=== PATIENT | female | born 1940 | race Caucasian/White ===

== ENCOUNTER 2016-10-04 19:15 | Inpatient (IN) ==
[2016-10-04] MEDS ORDERED: HYDROmorphone 2 MG/ML SYRINGE IV PRN ×2 (19:16→23:04)
[2016-10-04] MEDS ORDERED: 0.9 % SODIUM CHLORIDE 1,000 ML IV ONE (19:24)
--- NOTE | 2016-10-04 19:38 | Emergency Department Note ---
Fall HPI - General Chief Complaint: Fall Stated Complaint: fall Time Seen by Provider: 10/04/16 19:30 Source: patient Mode of arrival: ambulatory - History of Present Illness HPI Narrative: 76-year-old female with history of HTN, metastatic melanoma, and osteoporosis currently managed on bisphosphonate therapy presenting after sustaining a mechanical fall walking out of her mailbox after having a few glasses of wine tonight. She fell onto her left hip, felt instant popping sensation. She arrived via AMS. Pain upon arrival rated 7/10, without tingling nor decreased sensation present, no poikilothermia present. Patient presented incontinent of feces. No other symptoms present. - Related Data Home Medications Medication Instructions Recorded Confirmed calcium carb-vit D3-minerals 600 1 tab PO QDAY tab 06/26/15 10/04/16 mg calcium-400 unit tablet multivitamin tablet 1 tab PO QDAY 06/26/15 10/04/16 omega-3 fatty acids 500 mg capsule 1,000 mg PO QDAY 06/26/15 10/04/16 Previous Rx's Medication Instructions Recorded atorvastatin 40 mg tablet 40 mg PO QDAY #90 tab 02/01/16 alendronate 70 mg tablet 70 mg PO QWEEK #4 tab 08/13/16 amlodipine 5 mg tablet 5 mg PO QDAY #90 tab 08/13/16 hydrochlorothiazide 25 mg tablet 25 mg PO QDAY #90 tab 08/13/16 losartan 100 mg tablet 100 mg PO QDAY #90 tab 08/13/16 metoprolol succinate ER 25 mg 25 mg PO QDAY #90 tab 08/13/16 tablet,extended release 24 hr omeprazole 20 mg capsule,delayed 20 mg PO QDAY #90 cap 08/13/16 release potassium chloride ER 10 mEq 10 meq PO QDAY #90 cap 08/13/16 capsule,extended release Allergies Allergy/AdvReac Type Severity Reaction Status Date / Time No Known Drug Allergies Allergy Unverified 03/28/15 14:01 Review of Systems All systems ED: reviewed and negative except as stated. Fall PMH - Past Medical History Attestation: Yes: The following information was validated with the patient. Medical history: Reports: cancer (metastatic melanoma), hypertension, osteoporosis Physical Exam - General Limitations: no limitations General appearance: alert, appears intoxicated - Head Head exam: atraumatic, normocephalic - Eye Eye exam: Present: normal appearance, PERRL, EOMI - ENT ENT exam: normal exam, normal oropharynx, mucous membranes moist - Neck Neck exam: Present: normal inspection, full ROM - Chest Chest inspection: Present: normal inspection, symmetric chest wall rise - Respiratory Respiratory exam: Present: normal lung sounds bilaterally. Absent: respiratory distress, wheezes - Cardiovascular Cardiovascular exam: Present: regular rate, normal rhythm, normal heart sounds - Abdominal Exam Abdominal exam: Present: soft. Absent: distention, tenderness, guarding - Expanded Lower Extremity Exam Hip/Pelvis exam: Present: deformity (left hip stuck in external rotation), crepitus, shortening - Back Exam Back exam: Present: normal inspection, full ROM. Absent: tenderness - Neurological Exam Neurological exam: Present: alert - Psychiatric Psychiatric exam: Present: anxious - Skin Skin exam: Present: warm, dry, intact Course Vital Signs Temperature 96.7 F L 10/04/16 19:15 Pulse Rate 77 10/04/16 19:15 Respiratory Rate 19 10/04/16 19:15 Blood Pressure 142/85 10/04/16 19:15 Pulse Oximetry (%) 100 10/04/16 19:15 Temperature 97.6 F 10/05/16 00:00 Pulse Rate 62 10/04/16 22:50 Respiratory Rate 18 10/05/16 00:00 Blood Pressure 101/54 10/05/16 00:00 Pulse Oximetry (%) 96 10/05/16 00:00 Fall - [facility] Narrative Medical decision making narrative: XR hip demonstrating left displaced subtrochanteric femoral fracture. Patient found to be hyponatremic at 131, with elevated anion gap of 18. [place] [id number]. Discussed case with orthopedics, Dr. Morillo, who will consult in AM on patient, recommended bed traction. Discussed case with hospitalist, who agreed to admission for management of comorbid conditions. Patient was made NPO. - Lab Data Lab results reviewed: Yes I reviewed the patient's lab results. Result diagrams: 10/04/16 19:20 10/04/16 19:20 Lab Results 10/04/16 10/04/16 10/04/16 Range/Units 19:20 19:20 19:20 WBC 12.3 H (4.5-11.0) K/mcL RBC 4.02 (4.00-5.20) M/mcL Hgb 12.6 (12.0-15.0) g/dL Hct 38.3 (36.0-48.0) % MCV 95.3 (80.0-100.0) fL MCH 31.4 (26.0-34.0) pg MCHC 32.9 (31.0-36.0) g/dL RDW 13.5 (11.5-14.5) % Plt Count 284 (140-440) K/mcL MPV 9.7 (7.4-10.4) fL Gran % 66.4 (38.0-78.0) % Lymph % (Auto) 22.9 (15.5-49.0) % [place] % (Auto) 8.9 (1.0-9.0) % Eos % (Auto) 1.5 (0.0-7.0) % Baso % (Auto) 0.3 (0.0-2.0) % Gran # 8.2 H (1.8-8.0) K/mcL Lymph # 2.8 (1.5-4.8) K/mcL [place] # 1.1 H (0.1-0.9) K/mcL Eos # 0.2 (0.0-0.7) K/mcL Baso # 0 (0.0-0.3) K/mcL PT 12.8 (11.9-14.5) sec INR 0.9 (0.9-1.1) Sodium 131 L (133-145) mmol/L Potassium 3.3 (3.3-5.1) mmol/L Chloride 90 L (96-108) mmol/L Carbon Dioxide 23 (22-30) mmol/L Anion Gap 18.0 H (8-16) BUN 12 (8-23) mg/dl Creatinine 0.7 (0.6-1.1) mg/dl GFR Calculation 85 Glucose 142 H (70-105) mg/dL Calcium 9.5 (8.6-10.4) mg/dl Total Bilirubin 0.3 (0.0-1.0) mg/dL AST 25 (0-37) U/l ALT 30 (0-40) U/l Alkaline Phosphatase 65 (39-117) U/L Total Protein 7.8 (5.9-8.4) gm/dL Albumin 4.6 (3.2-5.2) gm/dL Globulin 3.2 (2.2-3.7) gm/dL Albumin/Globulin Ratio 1.4 (1.0-2.3) Urine Color Urine Appearance Urine pH (5.0-9.0) Ur Specific [place] (1.000-1.035) Urine Protein (NEG) mg/dL Urine Glucose (UA) (NEG) mg/dL Urine Ketones (NEG) mg/dL Urine Occult Blood (<0.03) mg/dL Urine Nitrate (NEG) Urine Bilirubin (NEG) mg/dL Urine Urobilinogen (NEG) mg/dL Ur Leukocyte Esterase (NEG) /uL Urine RBC (0-1) /hpf Urine WBC (0-4) /hpf Ur Squamous Epith Cells (0-4) /hpf Urine Bacteria (0) /hpf Hyaline Casts (0-2) /lpf Ur Culture Indicated? 10/04/16 Range/Units 20:10 WBC (4.5-11.0) K/mcL RBC (4.00-5.20) M/mcL Hgb (12.0-15.0) g/dL Hct (36.0-48.0) % MCV (80.0-100.0) fL MCH (26.0-34.0) pg MCHC (31.0-36.0) g/dL RDW (11.5-14.5) % Plt Count (140-440) K/mcL MPV (7.4-10.4) fL Gran % (38.0-78.0) % Lymph % (Auto) (15.5-49.0) % [place] % (Auto) (1.0-9.0) % Eos % (Auto) (0.0-7.0) % Baso % (Auto) (0.0-2.0) % Gran # (1.8-8.0) K/mcL Lymph # (1.5-4.8) K/mcL [place] # (0.1-0.9) K/mcL Eos # (0.0-0.7) K/mcL Baso # (0.0-0.3) K/mcL PT (11.9-14.5) sec INR (0.9-1.1) Sodium (133-145) mmol/L Potassium (3.3-5.1) mmol/L Chloride (96-108) mmol/L Carbon Dioxide (22-30) mmol/L Anion Gap (8-16) BUN (8-23) mg/dl Creatinine (0.6-1.1) mg/dl GFR Calculation Glucose (70-105) mg/dL Calcium (8.6-10.4) mg/dl Total Bilirubin (0.0-1.0) mg/dL AST (0-37) U/l ALT (0-40) U/l Alkaline Phosphatase (39-117) U/L Total Protein (5.9-8.4) gm/dL Albumin (3.2-5.2) gm/dL Globulin (2.2-3.7) gm/dL Albumin/Globulin Ratio (1.0-2.3) Urine Color Straw Urine Appearance Clear Urine pH 6.0 (5.0-9.0) Ur Specific [place] 1.006 (1.000-1.035) Urine Protein Neg (NEG) mg/dL Urine Glucose (UA) Negative (NEG) mg/dL Urine Ketones Neg (NEG) mg/dL Urine Occult Blood 0.03 A (<0.03) mg/dL Urine Nitrate Neg (NEG) Urine Bilirubin Neg (NEG) mg/dL Urine Urobilinogen Neg (NEG) mg/dL Ur Leukocyte Esterase Neg (NEG) /uL Urine RBC 1 (0-1) /hpf Urine WBC < 1 (0-4) /hpf Ur Squamous Epith Cells < 1 (0-4) /hpf Urine Bacteria 0 (0) /hpf Hyaline Casts 1 (0-2) /lpf Ur Culture Indicated? No - EKG Data EKG attestation: Yes I reviewed and interpreted this EKG. EKG shows normal: sinus rhythm Rate: normal Rhythm: NSR Disposition Clinical Impression: Fracture of femur Qualifiers: Encounter type: initial encounter Femur location: subtrochanteric Fracture type : closed Fracture alignment: displaced Laterality: left Qualified Code(s): S72.22XA - Displaced subtrochanteric fracture of left femur, initial encounter for closed fracture Disposition: Xfer As Inpt ([facility]) Condition: Fair
[2016-10-04 20:10] LABS: Basophils # (Auto) 0 K/mcL (0.0-0.3); Basophils % (Auto) 0.3 % (0.0-2.0); Eosinophils # (Auto) 0.2 K/mcL (0.0-0.7); Eosinophils % (Auto) 1.5 % (0.0-7.0); Granulocytes % (Auto) 66.4 % (38.0-78.0); Lymphocytes # (Auto) 2.8 K/mcL (1.5-4.8); Lymphocytes % (Auto) 22.9 % (15.5-49.0); Mean Cell Volume 95.3 fL (80.0-100.0); Mean Corpuscular HGB Conc 32.9 g/dL (31.0-36.0); Mean Corpuscular Hemoglobin 31.4 pg (26.0-34.0); Monocytes # (Auto) 1.1 K/mcL (0.1-0.9); Monocytes % (Auto) 8.9 % (1.0-9.0); Platelet Count 284 K/mcL (140-440); RBC 4.02 M/mcL (4.00-5.20); Red Cell Distribution Width 13.5 % (11.5-14.5)
--- NOTE | 2016-10-04 20:22 | XRay Report ---
CLINICAL INFORMATION: Hip fracture TECHNIQUE: AP semiupright portable chest x-ray COMPARISON: None. FINDINGS: Lungs are negative. No acute or focal pulmonary parenchymal infiltrate. No parenchymal mass. Heart size and vascularity are normal. No pulmonary edema. No pulmonary congestion. [place] and mediastinum are negative. IMPRESSION: Negative AP chest x-ray Interpreted and Authenticated by: Sami Fung 10/04/16
--- NOTE | 2016-10-04 20:23 | XRay Report ---
CLINICAL INFORMATION: Trauma TECHNIQUE: AP and lateral left hip. Crosstable lateral view COMPARISON: None. FINDINGS: Comminuted subtrochanteric fracture of the proximal left femur. There are multiple bone fragments. There is medial displacement with very subtle angulation. Left femoral diaphysis is displaced medially by greater than 100% of its width. Left femoral head and neck are negative. Pelvis is negative. There are surgical clips in the left inguinal region. IMPRESSION: Comminuted displaced left subtrochanteric femoral fracture Interpreted and Authenticated by: Sami Fung 10/04/16
[2016-10-04 20:35] LABS: ALT/SGPT 30 U/l (0-40); Albumin 4.6 gm/dL (3.2-5.2); Albumin/Globulin Ratio 1.4 (1.0-2.3); Alkaline Phosphatase 65 U/L (39-117); Blood Urea Nitrogen 12 mg/dl (8-23)
[2016-10-04 20:44] LABS: Appearance,Urine CLEAR; Bacteria,Urine 0 /hpf (0); Bilirubin,Urine NEG (NEG); Color,Urine STRAW; Glucose,Urine (UA) NEGATIVE (NEG); Leukocyte Esterase,Urine NEG /uL (NEG); Nitrate,Urine NEG (NEG); Protein,Urine NEG (NEG); Specific Gravity,Urine 1.006 (1.000-1.035); Urine Blood 0.03 mg/dL (<0.03); Urine Hyaline Cast 1 /lpf (0-2); Urine RBC 1 /hpf (0-1); Urine Squamous Epithelial Cell < 1 /hpf (0-4); Urine WBC < 1 /hpf (0-4); Urobilinogen,Urine NEG (NEG)
--- NOTE | 2016-10-04 22:17 | Internal Med History&Physical ---
Medical - H&P: HPI Patient information: Note initiated : 10/04/16 at 10:15 pm Service Date, if different from initiated Date: [] Patient: Amor Joshua 76 y/o F admitted on for fall. Chief Complaint: [] History of present illness: Ms. Joshua is a 76 year old female who tripped and fell this evening while she was walking outside in the dark. She landed on her hip, and had immediate hip pain. She was then transported to the emergency room, where a left subtrochanteric femoral fracturewas diagnosed. She is now admitted to stabilize overnight,and will see orthopedics in the morning. She has a history of hypertension, GERD, hyperlipidemia osteoporosis, and recent melanoma. otherwise, she denies recent fever or chills, headaches or dizziness, new eye or ear symptoms, sore throat. She does have a mild cough, which is nonproductive. She denies chest pain or palpitations, shortness of breath or wheezing, abdominal pain, nausea or vomiting, diarrhea or constipation or bright red blood per rectum, or dysuria. 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) Osteoporosis (Chronic) Basal cell carcinoma (Resolved) Closed fracture of finger (Resolved) Closed fracture of wrist (Resolved) Heel pain (Resolved) Stress due to family tension (Resolved) Ganglion (Inactive) Malignant melanoma -left lower leg, Refugio's level III Surgical History Hx of colonoscopy (Resolved) Hx of hysterectomy (Resolved) Hx of left breast biopsy (Resolved) Hx of melanoma excision (Resolved) medications: Potassium chloride 10 mEq daily Omeprazole 20 mg daily Fish oil 500 mg 2 daily Multivitamin daily Metoprolol succinate 25 mg daily Losartan 100 mg daily HCTZ 25 mg daily Calcium plus D6 100/400 one daily Lipitor 40 mg daily Amlodipine 5 mg daily Alendronate 70 mg every week Allergies: No known drug allergies Family History mother: Malignant neoplasm of colon father: Essential hypertension father: Cerebrovascular accident (CVA) Social History lives independently: Yes marital status: occupational status: retired Smoking Status: Former smoker; she smoked from the age of about 21 and told at 46, and then quit. She says she never smoked very much Alcohol intake frequency: 0-3lasses of wine per day substance use type: does not use she has 2 sisters, one lives in [place], and the other in [place] Her brother- in-law is her POA. She cannot recall if she's ever decided on a CODE STATUS but thinks she might accept short-term resuscitation, but no long-term life support. She says she really keeps to herself, and does not have many friends or other social support in the area. She lives alone, but with a Period Medical - H&P: Meds Home Medications Medication Instructions Recorded Confirmed Type calcium carb-vit D3-minerals 600 1 tab PO QDAY tab 06/26/15 10/04/16 History mg calcium-400 unit tablet multivitamin tablet 1 tab PO QDAY 06/26/15 10/04/16 History omega-3 fatty acids 500 mg capsule 1,000 mg PO QDAY 06/26/15 10/04/16 History Allergies Allergy/AdvReac Type Severity Reaction Status Date / Time No Known Drug Allergies Allergy Unverified 03/28/15 14:01 Medical - H&P: Exam - Constitutional Vitals: Temp Pulse Resp BP Pulse Ox 96.7 F L 81 19 122/61 93 10/04/16 19:15 10/04/16 21:55 10/04/16 19:15 10/04/16 21:55 10/04/16 21:55 Exam: on exam, she is a well-developed well-nourished elderly female in no acute distress. Head: Is normocephalic and atraumatic. Ears: PERRLA, EOMI, anicteric. Ears: TMs and canals are clear. Pharynx: Pharynx is clear, but somewhat crowded. Mucosa appears somewhat dry. Neck: Is supple, without obvious lymphadenopathy, JVD, thyromegaly, or bruits. Cardiac exam: Shows regular rate and rhythm with normal S1 and S2, without obvious murmurs, rubs, gallops. Lungs: Are clear to auscultation, without rales, rhonchi, wheezes. Abdomen: Is soft and nontender, without obvious masses. Bowel sounds are normoactive. Extremities: Right lower extremity appears normal, without cyanosis, clubbing, edema. Left lower extremity is held in external rotation. Pulses are intact. There is no obvious cyanosis, clubbing, edema. There is a small lesion about 1.5 cm multicolored, over her lower anterior ankle area, at the site of the previous melanoma excision. Neurologic: Patient is alert and oriented 3. Mood is a bit sad, with a flat affect. Motor exam is grossly nonfocal. Skin exam: Is as noted above. Medical - H&P: Reslt - Labs CBC & Chem 7: 10/04/16 19:20 10/04/16 19:20 Labs: Short CBC 10/04/16 Range/Units 19:20 WBC 12.3 H (4.5-11.0) K/mcL Hgb 12.6 (12.0-15.0) g/dL Hct 38.3 (36.0-48.0) % Plt Count 284 (140-440) K/mcL BMP 10/04/16 19:20 Sodium 131 L Potassium 3.3 Chloride 90 L Carbon Dioxide 23 BUN 12 Creatinine 0.7 Glucose 142 H Calcium 9.5 Liver Function 10/04/16 Range/Units 19:20 Total Bilirubin 0.3 (0.0-1.0) mg/dL AST 25 (0-37) U/l ALT 30 (0-40) U/l Alkaline Phosphatase 65 (39-117) U/L Albumin 4.6 (3.2-5.2) gm/dL Urine 10/04/16 Range/Units 20:10 Urine Color Straw Urine Appearance Clear Urine pH 6.0 (5.0-9.0) Ur Specific [place] 1.006 (1.000-1.035) Urine Protein Neg (NEG) mg/dL Urine Glucose (UA) Negative (NEG) mg/dL eKG shows normal sinus rhythm at a rate of about 80, with rather low voltage There are minor ST-T changes noted in leads 1 and V2 but no obvious acute ischemia. chest x-ray the shows no acute disease. x-ray of the left hip shows a comminuted displaced left sub-trochanteric femoral fracture. Medical - H&P: A/P (1) Closed left subtrochanteric femur fracture Current visit: Yes Status: Acute (2) Hyponatremia Current visit: Yes Status: Acute (3) Gastroesophageal reflux Current visit: No Status: Chronic (4) Hypertension, essential Current visit: No Status: Chronic (5) Osteoporosis Current visit: No Status: Chronic - Narrative A/P Narrative: 31. Orthopedics. -Left subtrochanteric fracture. Dr. Morillo from orthopedics will be in to see her tomorrow. She is to be placed in traction tonight. -iV pain meds as needed. -I would suggest continuing all of her usual medications during the period. If some of the blood pressure meds need to be held, at least continue her metoprolol. -he patient does not appear to have much of asocial support network, so may end up needing to go to rehabilitation after surgery. #2. Mild hyponatremia -IV fluids. Recheck in the morning. #3. cardiac. -History of hypertension Continue usual medications including beta león, osartan, Norvasc, HCTZ,during the perioperative period. #4. CODE STATUS:full code for now. The patient seems a little confused about the meaning of a no code order, and apparently does not have anything in writing. Her loewnon-ea-ioo in [place] is her power of commercial attorney. #5. DVT prophylaxis: We'll start with subcutaneous heparin and then defer to orthopedics for the longer term prophylaxis. #6. History of osteoporosis. -Continue Fosamax plus calcium and vitamin D. (we will need to hold the Fosamax , until she is able to sit upright for at least 30 minutes after her dose.) #7. Recent diagnosis of lower extremity melanoma. Status post wide excision. -here is a suspicious lesion near the excision scar. She is encouraged to follow-up with her skin doctor to have this looked at again. it is reported that one of 4 lymph nodes was positive. It is not clear what the plan for further care is. #8. Hyperlipidemia.continue Lipitor. #9. GERD.-Continue PPI. it took approximately 55 minutes, to review her records, review her case with the [facility], interview and examine her, and write orders.
[2016-10-04] MEDS ORDERED: CALCIUM CARBONATE 500 MG TAB.CHEW CHEWED PRN (23:04)
[2016-10-04] MEDS ORDERED: MAGNESIUM HYDROXIDE 30 ML ORAL.SUSP PO PRN (23:04)
[2016-10-04] MEDS ORDERED: ONDANSETRON 4 MG/2 ML VIAL IV PRN (23:04)
[2016-10-04] MEDS ORDERED: NALOXONE HCL 0.4 MG/ML VIAL IV PRN (23:04)
[2016-10-04] MEDS ORDERED: ACETAMINOPHEN 325 MG TABLET PO PRN (23:04)
[2016-10-04] MEDS ORDERED: LORazepam 2 MG/ML VIAL IV PRN (23:47)
[2016-10-05] MEDS: POTASSIUM CHLORIDE 30 MEQ in 0.45 % SODIUM CHLORIDE 1,000 ML IV SCH ×2 (00:19→11:48)
[2016-10-05] MEDS: 0.9 % SODIUM CHLORIDE 10 ML SYRINGE IV SCH ×3 (04:48→21:40)
[2016-10-05 06:52] LABS: Basophils # (Auto) 0 K/mcL (0.0-0.3); Basophils % (Auto) 0.1 % (0.0-2.0); Eosinophils # (Auto) 0.1 K/mcL (0.0-0.7); Eosinophils % (Auto) 0.8 % (0.0-7.0); Granulocytes % (Auto) 83.4 % (38.0-78.0); Lymphocytes # (Auto) 0.8 K/mcL (1.5-4.8); Lymphocytes % (Auto) 6.6 % (15.5-49.0); Mean Cell Volume 94.1 fL (80.0-100.0); Mean Corpuscular HGB Conc 33.5 g/dL (31.0-36.0); Mean Corpuscular Hemoglobin 31.5 pg (26.0-34.0); Monocytes # (Auto) 1.1 K/mcL (0.1-0.9); Monocytes % (Auto) 9.1 % (1.0-9.0); Platelet Count 244 K/mcL (140-440); RBC 4.09 M/mcL (4.00-5.20); Red Cell Distribution Width 12.9 % (11.5-14.5)
[2016-10-05 07:32] LABS: ALT/SGPT 27 U/l (0-40); Albumin 4.6 gm/dL (3.2-5.2); Albumin/Globulin Ratio 1.8 (1.0-2.3); Alkaline Phosphatase 64 U/L (39-117); Bilirubin,Direct < 0.2 mg/dL (0.0-0.3); Blood Urea Nitrogen 11 mg/dl (8-23); Gamma Glutamyl Transpeptidase 20 U/L (5-36); Magnesium 1.6 mg/dL (1.6-2.5); Phosphorous 4.1 mg/dL (2.7-4.5); Uric Acid 3.4 mg/dL (2.5-8.0)
[2016-10-05] MEDS: METOPROLOL SUCCINATE 25 MG TAB.XL.24H PO SCH (07:57)
[2016-10-05] MEDS: amLODIPine 5 MG TABLET PO SCH (07:57)
[2016-10-05] MEDS ORDERED: ceFAZolin 1 GM VIAL IV SCH (08:00)
[2016-10-05] MEDS ORDERED: ceFAZolin 1 GM VIAL ONE ×2 (08:01→08:02)
[2016-10-05] MEDS ORDERED: ePHEDrine 50 MG/ML AMPUL IV ONE (08:06)
[2016-10-05] MEDS ORDERED: KETAMINE 100 MG/ML ML IV ONE (08:06)
[2016-10-05] MEDS ORDERED: MIDAZOLAM 5 MG/5 ML VIAL IV ONE (08:06)
[2016-10-05] MEDS ORDERED: ONDANSETRON 4 MG/2 ML VIAL IV ONE (08:06)
[2016-10-05] MEDS ORDERED: fentaNYL 250 MCG/5 ML VIAL IV ONE (08:06)
[2016-10-05] MEDS ORDERED: PROPOFOL 200 MG/20 ML VIAL IV ONE (08:06)
[2016-10-05] MEDS ORDERED: LIDOCAINE HCL/PF 100 MG/5 ML SYRINGE IV ONE (08:06)
[2016-10-05] MEDS ORDERED: HYDROmorphone 2 MG/ML SYRINGE IV ONE (08:06)
[2016-10-05] MEDS ORDERED: DEXAMETHASONE 10 MG/ML VIAL IV ONE (08:06)
--- NOTE | 2016-10-05 08:50 | History and Physical Report ---
DATE OF ADMISSION: 10/04/2016 DATE OF : 1940 CHIEF COMPLAINT: Left hip injury. HISTORY: Ms. Joshua was walking outside of her home on Friday night and she tripped landing on her left side. She is a pleasant 76-year-old female. She had immediate pain, was unable to ambulate. She was found to have a left subtrochanteric femoral fracture which was displaced in the emergency department. She was admitted to the hospital for medical clearance. She denies any recent shortness of breath, chest pain, fever, chills, nausea, vomiting, diarrhea, or constipation. PAST MEDICAL HISTORY: Cataract. Dupuytren's. Elevated LFTs. Gastroesophageal reflux. Hypercalcemia. Hyperlipidemia. Hypertension. Metastatic melanoma. Osteoporosis. Basal cell carcinoma. Malignant melanoma. PAST SURGICAL HISTORY: History of colonoscopy, hysterectomy, left breast biopsy and melanoma excision. MEDICATIONS: Potassium chloride 10 mEq orally every day. Omeprazole 20 mg orally every day. Fish oil 500 mg twice a day. Multiple vitamin orally every day. Metoprolol succinate 25 mg orally every day. Losartan 100 mg orally every day. Hydrochlorothiazide 25 mg orally every day. Calcium plus vitamin D 100/400 orally every day. Lipitor 40 mg orally every day. Amlodipine 5 mg orally every day. Alendronate 70 mg orally every week. ALLERGIES: NO KNOWN DRUG ALLERGIES. FAMILY HISTORY: Colon cancer. CVA. Hypertension. SOCIAL HISTORY: She is currently . She lives alone. She is a former smoker. She drinks 0-3 glasses of wine per day. REVIEW OF SYSTEMS: No recent chest pain, shortness of breath, fever, chills, nausea, vomiting, diarrhea or constipation. PHYSICAL EXAMINATION: GENERAL: Resting on the hospital bed, in no acute distress. She is alert and oriented times 3 and cooperative to exam. VITAL SIGNS: Temperature 98.1, pulse 82, respirations 18, BP 130/60, pulse 93 percent on room air. NECK: Nontender to palpation. Full range of motion. CARDIAC: Regular rate and rhythm without murmur or gallop. LUNGS: Clear to auscultation in all lung saha bilaterally. ABDOMEN: Soft, nontender, and nondistended. EXTREMITIES: Bilateral upper extremities have full range of motion without any tenderness to palpation. The left lower extremity is shortened and externally rotated and she is in Cadena's traction. She has a good dorsalis pedis and posterior tibialis pulse. She is able to wiggle her toes. No tenderness to palpation throughout the leg or knee. Right lower extremity is full range of motion without any tenderness to palpation. Sensation is intact to light touch grossly throughout the extremity, 2+ DP and PT with capillary refill less than 2 seconds. RADIOGRAPHS: AP pelvis, AP and lateral of the left hip demonstrated a comminuted subtrochanteric femur fracture. It is displaced and dissociated. ASSESSMENT: Left comminuted subtrochanteric proximal femur fracture which is displaced. PLAN: She has been medically cleared and felt that surgery would be her best option to try to stabilize the leg. Will plan for an cephalomedullary nailing of the left hip with a long gamma nail. The risks and benefits were discussed with the patient in detail including, but not limited to, the risks of anesthesia, problems with the heart or lungs related to anesthesia, infection, compromise or injury to the nerves and blood vessels, deep venous thrombosis, pulmonary embolism, pneumonia, continued pain after surgery, worsening pain or symptoms after surgery, swelling, loss of motion, need for repeat surgery, hardware failure, re-tear or failure of repair site, malunion, nonunion, leg length discrepancy and rotational abnormality and hardware pain requiring future removal. We will get this done per her request. ANGELES:vikash Job ID: [id number] Doc ID: [id number] Lev Morillo MD
[2016-10-05] MEDS ORDERED: HEPARIN 5,000 UNIT/ML VIAL SQ SCH (09:00)
[2016-10-05] MEDS: POTASSIUM CHLORIDE 10 MEQ TABLET PO SCH (09:09)
[2016-10-05] MEDS: CALCIUM W/VIT D3 500 MG TABLET PO SCH (09:10)
[2016-10-05] MEDS: DOCUSATE SODIUM 100 MG CAPSULE PO SCH ×2 (09:10→19:46)
[2016-10-05] MEDS: PANTOPRAZOLE 40 MG TABLET PO SCH (09:10)
[2016-10-05] MEDS: ATORVASTATIN 40 MG TABLET PO SCH (09:11)
[2016-10-05] MEDS: MULTIVIT,THER IRON,CA,FA & MIN 1 TABLET PO SCH (09:11)
[2016-10-05] MEDS: HYDROCHLOROTHIAZIDE 25 MG TABLET PO SCH (09:12)
[2016-10-05] MEDS: LOSARTAN 50 MG TABLET PO SCH (09:13)
[2016-10-05] MEDS ORDERED: PROMETHAZINE 25 MG/ML VIAL IV PRN (09:15)
[2016-10-05] MEDS ORDERED: MEPERIDINE 50 MG/ML SYRINGE IM ONE (09:15)
[2016-10-05] MEDS ORDERED: MEPERIDINE 25 MG/ML SYRINGE IV PRN (09:15)
[2016-10-05] MEDS ORDERED: IPRATROPIUM/ALBUTEROL 3 ML AMPUL.NEB NEB PRN (09:15)
[2016-10-05] MEDS ORDERED: METHOCARBAMOL 1,000 MG/10 ML VIAL IV PRN (09:15)
[2016-10-05] MEDS ORDERED: LACTATED RINGERS 1,000 ML IV SCH (09:15)
[2016-10-05] MEDS ORDERED: fentaNYL 100 MCG/2 ML VIAL IV PRN (09:15)
[2016-10-05] MEDS ORDERED: NALOXONE HCL 0.4 MG/ML VIAL IV PRN (09:15)
[2016-10-05] MEDS ORDERED: HYDROmorphone 2 MG/ML SYRINGE IV PRN ×2 (09:15→10:03)
[2016-10-05] MEDS ORDERED: FLUMAZENIL 0.1 MG/ML ML IV PRN (09:15)
[2016-10-05] MEDS ORDERED: PROMETHAZINE 25 MG/ML VIAL IM ONE (09:15)
[2016-10-05] MEDS ORDERED: METOCLOPRAMIDE 10 MG/2 ML VIAL IV PRN (09:15)
[2016-10-05] MEDS ORDERED: ONDANSETRON 4 MG/2 ML VIAL IV PRN (09:15)
[2016-10-05] MEDS ORDERED: ePHEDrine 50 MG/ML AMPUL IV PRN (09:15)
[2016-10-05] MEDS ORDERED: LACTATED RINGERS 250 ML IV PRN (09:15)
[2016-10-05] MEDS ORDERED: BENZOCAINE/MENTHOL 1 LOZENGE PO PRN ×2 (09:15→10:03)
[2016-10-05] MEDS ORDERED: diphenhydrAMINE 50 MG/ML VIAL IV PRN (09:15)
--- NOTE | 2016-10-05 10:02 | Brief Operative Note ---
Date of procedure: 10/05/16 Pre-op diagnosis: left hip subtrochanteric Post-op diagnosis: same Procedure: gamma nail left hip Grafts/Implants: Yes Anesthesia: GETA Complications: none Surgeon: Sami Morillo [employer] Engineer: Reji Mccarthy Estimated blood loss (cc): 200 Specimens Removed/Pathology: none sent Condition: stable Disposition: PACU
[2016-10-05] MEDS ORDERED: ONDANSETRON ODT 4 MG TABLET SL PRN (10:03)
[2016-10-05] MEDS ORDERED: FLEETS ADULT ENEMA PR PRN (10:03)
[2016-10-05] MEDS ORDERED: MAGNESIUM HYDROXIDE 30 ML ORAL.SUSP PO PRN (10:03)
[2016-10-05] MEDS ORDERED: METHOCARBAMOL 750 MG TABLET PO PRN (10:03)
[2016-10-05] MEDS ORDERED: BISACODYL 10 MG SUPP.RECT PR PRN (10:03)
[2016-10-05] MEDS ORDERED: POLYETHYLENE GLYCOL 3350 17 GM PACKET PO PRN (10:03)
[2016-10-05] MEDS: 0.9 % SODIUM CHLORIDE 1,000 ML IV SCH ×2 (11:54→21:40)
--- NOTE | 2016-10-05 13:23 | XRay Report ---
CLINICAL INFORMATION: Postsurgical follow-up. Status post open reduction and internal fixation of comminuted subtrochanteric proximal left femoral fracture. TECHNIQUE: AP left femur, crosstable lateral left hip COMPARISON: Prereduction examination dated 10/04/2016 FINDINGS: There is a gamma nail configuration within the left hip. There is an intramedullary nail extending the length of the left femur. Comminuted left subtrochanteric, proximal left femoral fracture again identified. Alignment is essentially anatomic. IMPRESSION: Open reduction and internal fixation of comminuted left subtrochanteric, proximal femoral fracture Interpreted and Authenticated by: Sami Fung 10/05/16
--- NOTE | 2016-10-05 13:46 | Internal Med Progress Note ---
Medical - PN: Subj Patient information: Note initiated : 10/05/16 at 1:46 pm Service Date, if different from initiated Date: [] Patient: Amor Joshua 76 y/o F admitted on 10/04/16 for fall. Chief Complaint: [] Interval history: October 04, 2016: History of present illness: Ms. Joshua is a 76 year old female who tripped and fell this evening while she was walking outside in the dark. She landed on her hip, and had immediate hip pain. She was then transported to the emergency room, where a left subtrochanteric femoral fracturewas diagnosed. She is now admitted to stabilize overnight,and will see orthopedics in the morning. She has a history of hypertension, GERD, hyperlipidemia osteoporosis, and recent melanoma. otherwise, she denies recent fever or chills, headaches or dizziness, new eye or ear symptoms, sore throat. She does have a mild cough, which is nonproductive. She denies chest pain or palpitations, shortness of breath or wheezing, abdominal pain, nausea or vomiting, diarrhea or constipation or bright red blood per rectum, or dysuria. october 05: this morning, the patient is status post pinning of her hip. she is wrapped essentially had to toe and blankets. She is quite groggy. she denies significant pain, chest pain or shortness of breath, abdominal pain, nausea or vomiting. - Constitutional Vitals: Vital Signs Temp Pulse Resp BP Pulse Ox 98.7 F 83 10 L 146/77 95 10/05/16 12:00 10/05/16 12:00 10/05/16 12:00 10/05/16 12:00 10/05/16 12:00 Period Temp Pulse Resp BP Sys/Garsia Pulse Ox Last 24 Hr 97.1 F-98.7 F 12-90 10-18 101-164/54-77 94-97 Intake and Output 10/04/16 10/05/16 10/05/16 21:59 05:59 13:59 Intake Total 1000 / 1000 1850 / 1850 Output Total 600 / 600 500 / 500 Balance 400 / 400 1350 / 1350 Weight 144 lb 8 oz 144 lb 8 oz Patient Weight 10/06/16 05:59 Weight 144 lb 8 oz Intake & Output: Intake & Output 10/04/16 10/05/16 10/05/16 21:59 05:59 13:59 Intake Total 1000 / 1000 1850 / 1850 Output Total 600 / 600 500 / 500 Balance 400 / 400 1350 / 1350 Weight 144 lb 8 oz 144 lb 8 oz Intake: IV 1000 / 1000 50 / 50 Sodium Chloride 0.9% 1, 1000 / 1000 000 ml @ Wide Open IV [facility] Rx#:[id number] Lactated Ringers 1,000 ml 50 / 50 @ 20 mls/hr IV .Q24H [facility] Rx#:[id number] Oral 0 / 0 IV - Manual Only 1800 / 1800 Output: Urine Catheter Amount 600 / 600 250 / 250 Estimated Blood Loss 250 / 250 Exam: on exam, she is groggy. neck: Shows no obvious JVD. She is lying flat. Cardiac exam shows regular rate and rhythm. Lungs are clear to auscultation. Abdomen is soft and nontender. Extremities:Left hip area is bandaged, and has an ice pack in place. There is no significant edema noted. Medical - PN: Obj Da - Labs CBC & Chem 7: 10/05/16 05:11 10/05/16 05:11 Labs: Abnormal Lab Results 10/05/16 10/05/16 05:11 05:11 WBC 11.9 H Gran % 83.4 H Lymph % (Auto) 6.6 L [place] % (Auto) 9.1 H Gran # 10.0 H Lymph # 0.8 L [place] # 1.1 H Anion Gap 18.0 H Creatinine 0.5 L Glucose 116 H eKG shows normal sinus rhythm at a rate of about 80, with rather low voltage There are minor ST-T changes noted in leads 1 and V2 but no obvious acute ischemia. chest x-ray the shows no acute disease. x-ray of the left hip shows a comminuted displaced left sub-trochanteric femoral fracture. Meds: Medications Acetaminophen (Tylenol) 650 mg PO Q6HP PRN PRN Reason: PAIN/FEVER > 101 Acetaminophen/Hydrocodone Bitart ([place] 10/325mg) 0 tab PO Q4HP PRN PRN Reason: Pain Amlodipine Besylate (Norvasc) 5 mg PO QDAY [facility] Last Admin: 10/05/16 07:57 Dose: 5 mg Atorvastatin Calcium (Lipitor) 40 mg PO QDAY [facility] Last Admin: 10/05/16 09:11 Dose: Not Given Bisacodyl (Dulcolax) 10 mg OR Q2-3DAYS PRN PRN Reason: Constipation Calcium Carbonate/Glycine (Tums) 1,000 mg CHEWED Q4HP PRN PRN Reason: Dyspepsia Calcium/Vitamin D (Calcium W/Vit D3) 500 mg PO DAILY [facility] Last Admin: 10/05/16 09:10 Dose: Not Given Cefazolin Sodium (Ancef) 1 gm IV Q8H [facility] Stop: 10/06/16 00:01 Docusate Sodium (Colace) 100 mg PO BID [facility] Last Admin: 10/05/16 09:10 Dose: Not Given Hydrochlorothiazide (Oretic) 25 mg PO QDAY [facility] Last Admin: 10/05/16 09:12 Dose: Not Given Hydromorphone HCl (Dilaudid) 0 mg IV Q2HP PRN PRN Reason: Pain Sodium Chloride (Sodium Chloride 0.9%) 1,000 mls @ 100 mls/hr IV .Q10H [facility] Last Admin: 10/05/16 11:54 Dose: 100 mls/hr Iron Carb/Multivit/[place]/Folic Acid (Multivitamin W/Minerals) 1 tab PO DAILY [facility] Last Admin: 10/05/16 09:11 Dose: Not Given Lorazepam (Ativan) 1 mg IV Q4-6HP PRN PRN Reason: ANXIETY/SEDATION Losartan Potassium (Cozaar) 100 mg PO DAILY [facility] Last Admin: 10/05/16 09:13 Dose: Not Given Magnesium Hydroxide (Milk Of Magnesia) 30 ml PO BIDP PRN PRN Reason: Constipation Methocarbamol (Robaxin) 750 mg PO Q6HP PRN PRN Reason: Muscle Spasm Metoprolol Succinate (Toprol Xl) 25 mg PO QDAY [facility] Last Admin: 10/05/16 07:57 Dose: 25 mg Naloxone HCl (Narcan) 0.1 mg IV Q2MIN PRN PRN Reason: Opiate Reversal Ondansetron HCl (Zofran) 4 mg IV Q6HP PRN PRN Reason: Nausea And Vomiting Ondansetron HCl (Zofran Odt) 4 mg SL Q4HP PRN PRN Reason: Nausea And Vomiting Pantoprazole Sodium (Protonix) 40 mg PO QAMAC [facility] Last Admin: 10/05/16 09:10 Dose: Not Given Polyethylene Glycol (Miralax) 17 gm PO DAILYP PRN PRN Reason: Constipation Potassium Chloride (Kdur) 10 meq PO QAMCC [facility] Last Admin: 10/05/16 09:09 Dose: Not Given Senna (Senokot) 2 tab PO [facility] Sodium Biphosphate/Sodium Phosphate (Fleets Adult) 1 dose OR Q3-4DAYS PRN PRN Reason: Constipation Sodium Chloride (Saline Flush) 10 ml IV Q8 [facility] Last Admin: 10/05/16 04:48 Dose: Not Given Throat Lozenges (Cepacol) 1 lozenge PO PRN PRN PRN Reason: Sore Throat Warfarin Sodium (Coumadin) 4 mg PO DAILY@1400 [facility] Medical - PN: A/P - Time Spent With Patient Total time spent is greater than 50% in coordination of care (as documented) at patient's floor/unit and/or counseling patient: (1) Closed left subtrochanteric femur fracture Status: Acute Current Visit: Yes (2) Hyponatremia Status: Acute Current Visit: Yes (3) Gastroesophageal reflux Status: Chronic Current Visit: No (4) Hypertension, essential Status: Chronic Current Visit: No (5) Osteoporosis Status: Chronic Current Visit: No - Narrative A/P Narrative: #1. Orthopedics. -Left subtrochanteric fracture. patient is status post ORIF. -iV pain meds as needed. -I would suggest continuing all of her usual medications during the period. If some of the blood pressure meds need to be held, at least continue her metoprolol. -he patient does not appear to have much of a social support network, so may end up needing to go to rehabilitation after surgery. #2. Mild hyponatremia -improved. #3. cardiac. -History of hypertension Continue usual medications including beta león, osartan, Norvasc, HCTZ,during the perioperative period. #4. CODE STATUS:full code for now. The patient seems a little confused about the meaning of a no code order, and apparently does not have anything in writing. Her [id number] in [place] is her power of assistant county attorney. #5. DVT prophylaxis: Dr. Morillo has started her on low-dose Coumadin. #6. History of osteoporosis. -Continue Fosamax plus calcium and vitamin D. (we will need to hold the Fosamax , until she is able to sit upright for at least 30 minutes after her dose.) #7. Recent diagnosis of lower extremity melanoma. Status post wide excision. -here is a suspicious lesion near the excision scar. She is encouraged to follow-up with her skin doctor to have this looked at again. it is reported that one of 4 lymph nodes was positive. It is not clear what the plan for further care is. #8. Hyperlipidemia.continue Lipitor. #9. GERD.-Continue PPI. #10. Chronic alcohol use. she reports drinking 2-3 glasses of wine per day. We may need to watch for signs of alcohol withdrawal, if she ends up staying in the hospital more than another day or so.I did add when necessary lorazepam. Medical - PN: Qual - Stroke Symptom Onset Unknown: No - VTE Deep Vein Thrombosis/Pulmonary Embolism Present on Admission: No
[2016-10-05] MEDS: WARFARIN 4 MG TABLET PO SCH ×2 (14:38→14:43)
[2016-10-05] MEDS: ceFAZolin 1 GM VIAL IV SCH ×2 (16:12→23:59)
[2016-10-05] MEDS: HYDROcodone/APAP 10/325MG TABLET PO PRN (19:46)
[2016-10-05] MEDS: SENNOSIDES 1 TABLET PO SCH (19:46)
[2016-10-05] MEDS ORDERED: DOCUSATE SODIUM 100 MG CAPSULE PO SCH (21:00)
[2016-10-06 05:46] LABS: Basophils # (Auto) 0 K/mcL (0.0-0.3); Basophils % (Auto) 0.1 % (0.0-2.0); Eosinophils # (Auto) 0 K/mcL (0.0-0.7); Eosinophils % (Auto) 0.6 % (0.0-7.0); Granulocytes % (Auto) 80.6 % (38.0-78.0); Lymphocytes # (Auto) 0.6 K/mcL (1.5-4.8); Mean Cell Volume 94.7 fL (80.0-100.0); Mean Corpuscular HGB Conc 33.5 g/dL (31.0-36.0); Mean Corpuscular Hemoglobin 31.7 pg (26.0-34.0); Monocytes % (Auto) 11.7 % (1.0-9.0); Platelet Count 186 K/mcL (140-440); RBC 2.89 M/mcL (4.00-5.20); Red Cell Distribution Width 13.3 % (11.5-14.5)
[2016-10-06] MEDS: 0.9 % SODIUM CHLORIDE 10 ML SYRINGE IV SCH ×3 (05:46→20:49)
[2016-10-06 06:37] LABS: ALT/SGPT 16 U/l (0-40); Albumin 3.3 gm/dL (3.2-5.2); Albumin/Globulin Ratio 1.4 (1.0-2.3); Alkaline Phosphatase 41 U/L (39-117); Bilirubin,Direct < 0.2 mg/dL (0.0-0.3); Blood Urea Nitrogen 10 mg/dl (8-23); Gamma Glutamyl Transpeptidase 14 U/L (5-36); Magnesium 1.8 mg/dL (1.6-2.5); Phosphorous 2.7 mg/dL (2.7-4.5); Uric Acid 2.5 mg/dL (2.5-8.0)
[2016-10-06] MEDS: HYDROcodone/APAP 10/325MG TABLET PO PRN ×2 (07:23→20:52)
[2016-10-06] MEDS: PANTOPRAZOLE 40 MG TABLET PO SCH (07:23)
[2016-10-06] MEDS: POTASSIUM CHLORIDE 10 MEQ TABLET PO SCH (07:23)
[2016-10-06] MEDS: 0.9 % SODIUM CHLORIDE 1,000 ML IV SCH (07:40)
[2016-10-06] MEDS ORDERED: FISH OIL 1,000 MG CAPSULE PO SCH (09:00)
[2016-10-06] MEDS: METOPROLOL SUCCINATE 25 MG TAB.XL.24H PO SCH (09:31)
[2016-10-06] MEDS: amLODIPine 5 MG TABLET PO SCH (09:31)
[2016-10-06] MEDS: LOSARTAN 50 MG TABLET PO SCH (09:31)
[2016-10-06] MEDS: MULTIVIT,THER IRON,CA,FA & MIN 1 TABLET PO SCH (09:31)
[2016-10-06] MEDS: HYDROCHLOROTHIAZIDE 25 MG TABLET PO SCH (09:32)
[2016-10-06] MEDS: CALCIUM W/VIT D3 500 MG TABLET PO SCH (09:32)
[2016-10-06] MEDS: DOCUSATE SODIUM 100 MG CAPSULE PO SCH ×2 (09:32→20:48)
[2016-10-06] MEDS: ATORVASTATIN 40 MG TABLET PO SCH (09:33)
--- NOTE | 2016-10-06 11:26 | Orthopedic Progress Note ---
Subjective Patient information: Note initiated : 10/06/16 at 11:24 am Service Date, if different from initiated Date: [] Patient: Amor Joshua 76 y/o F admitted on 10/04/16 for fall. Chief Complaint: [] Principal diagnosis: Left subtroch femur fracture with cephalomedullary nailing Interval history: Doing well this morning. Pain controlled. Up sitting in a chair. No complaints. Lives alone and needs placement at [facility]. Prefers [facility]. Will work on placemen with pediatric social worker. Objective Vital signs: Vital Signs Temp Pulse Pulse Resp BP BP Pulse Ox 10/06/16 09:25 94 H 93 10/06/16 07:45 98.1 F 93 H 16 150/72 95 10/06/16 04:00 97.6 F 88 18 143/73 94 10/06/16 00:00 98.8 F 87 18 133/69 95 10/05/16 20:00 98.8 F 92 H 16 113/60 93 10/05/16 15:46 97.7 F 96 H 12 125/74 97 10/05/16 15:15 98.2 F 99 H 12 148/75 98 10/05/16 14:15 102 H 149/74 97 10/05/16 13:45 94 H 145/77 10/05/16 13:15 86 136/74 92 10/05/16 12:45 84 136/76 94 10/05/16 12:30 84 130/75 95 10/05/16 12:15 83 123/76 10/05/16 12:00 98.7 F 83 10 L 146/77 95 Intake and Output 10/05/16 10/06/16 10/06/16 21:59 05:59 13:59 Intake Total 977 / 977 480 / 480 1800 / 1800 Output Total 950 / 950 1050 / 1050 1125 / 1125 Balance -570 / -570 675 / 675 Intake: IV 977 / 977 1000 / 1000 Sodium Chloride 0.9% 1, 977 / 977 1000 / 1000 000 ml @ 100 mls/hr IV . Q10H [facility] Rx#:[id number] Oral 480 / 480 800 / 800 Output: Urine Catheter Amount 950 / 950 1050 / 1050 1125 / 1125 Other: Meal Crackers Breakfast Percent of Meal Consumed 100% Feeding Ability Independent Independent Weight 145 lb Intake & Output: Intake & Output 10/05/16 10/06/16 10/06/16 21:59 05:59 13:59 Intake Total 977 / 977 480 / 480 1800 / 1800 Output Total 950 / 950 1050 / 1050 1125 / 1125 Balance -570 / -570 675 / 675 Weight 145 lb Intake: IV 977 / 977 1000 / 1000 Sodium Chloride 0.9% 1, 977 / 977 1000 / 1000 000 ml @ 100 mls/hr IV . Q10H [facility] Rx#:[id number] Oral 480 / 480 800 / 800 Output: Urine Catheter Amount 950 / 950 1050 / 1050 1125 / 1125 Other: Meal Crackers Breakfast Percent of Meal Consumed 100% Feeding Ability Independent Independent Incision: Yes clean and dry Incision clean and dry: Yes Dressing: Yes clean, Yes dry, Yes intact Weight bearing status: as tolerated Neurological exam IM: Yes alert, Yes oriented X3, Yes motor sensory intact, Yes neurovascular intact Extremities exam IM: No calf tenderness, Yes normal inspection, No Angie's sign , Yes neurovascular intact - Periperhal Pulses Peripheral pulses: 2+: dorsalis pedis (L), dorsalis pedis (R), posterior tibialis (L), posterior tibialis (R) - Labs CBC & BMP: 10/06/16 03:49 10/06/16 03:49 Labs: Orthopedic Labs 10/06/16 03:49 PT 14.4 INR 1.1 10/06/16 10/05/16 03:49 05:11 Hgb 9.2 L 12.9 Hct 27.3 L 38.5 Assessment and Plan (1) Closed left subtrochanteric femur fracture PO day 1 s/p left cephalomedullary nailing for subtroch femur fracture -PT, WBAT -Mobilize with assisted device -Pain control -DVT Prophylaxis -DC planning for Friday to Status: Acute Qualifiers: Encounter type: subsequent encounter Fracture healing: with routine healing Qualified Code(s): S72.22XD - Displaced subtrochanteric fracture of left femur, subsequent encounter for closed fracture with routine healing
--- NOTE | 2016-10-06 13:30 | Internal Med Progress Note ---
Medical - PN: Subj Patient information: Note initiated : 10/06/16 at 1:30 pm Service Date, if different from initiated Date: [] Patient: Amor Joshua 76 y/o F admitted on 10/04/16 for fall. Chief Complaint: [] Interval history: October 04, 2016: History of present illness: Ms. Joshua is a 76 year old female who tripped and fell this evening while she was walking outside in the dark. She landed on her hip, and had immediate hip pain. She was then transported to the emergency room, where a left subtrochanteric femoral fracturewas diagnosed. She is now admitted to stabilize overnight,and will see orthopedics in the morning. She has a history of hypertension, GERD, hyperlipidemia osteoporosis, and recent melanoma. otherwise, she denies recent fever or chills, headaches or dizziness, new eye or ear symptoms, sore throat. She does have a mild cough, which is nonproductive. She denies chest pain or palpitations, shortness of breath or wheezing, abdominal pain, nausea or vomiting, diarrhea or constipation or bright red blood per rectum, or dysuria. october 05: this morning, the patient is status post pinning of her hip. she is wrapped essentially had to toe and blankets. She is quite groggy. she denies significant pain, chest pain or shortness of breath, abdominal pain, nausea or vomiting. October 06:today, the patient says she is feeling quite well. She is sitting up in a chair. She has only minimal pain unless she tries to stand up. Otherwise, she denies fever or chills, chest pain or shortness of breath, abdominal pain, nausea or vomiting or diarrhea, dysuria. Negron catheter is still in place. her surgery went well yesterday. She has no social support network, so we'll need to discharge to a rehabilitation center for her rehabilitation. - Constitutional Vitals: Vital Signs Temp Pulse Resp BP Pulse Ox 98.7 F 80 16 147/73 96 10/06/16 11:35 10/06/16 11:35 10/06/16 11:35 10/06/16 11:35 10/06/16 11:35 Period Temp Pulse Resp BP Sys/Garsia Pulse Ox Last 24 Hr 97.6 F-98.8 F 80-102 12-18 113-150/60-77 93-98 Intake and Output 10/05/16 10/06/16 10/06/16 21:59 05:59 13:59 Intake Total 977 / 977 480 / 480 1800 / 1800 Output Total 950 / 950 1050 / 1050 1125 / 1125 Balance 27 / 27 -570 / -570 675 / 675 Weight 145 lb Intake & Output: Intake & Output 10/05/16 10/06/16 10/06/16 21:59 05:59 13:59 Intake Total 977 / 977 480 / 480 1800 / 1800 Output Total 950 / 950 1050 / 1050 1125 / 1125 Balance 27 / 27 -570 / -570 675 / 675 Weight 145 lb Intake: IV 977 / 977 1000 / 1000 Sodium Chloride 0.9% 1, 977 / 977 1000 / 1000 000 ml @ 100 mls/hr IV . Q10H [facility] Rx#:[id number] Oral 480 / 480 800 / 800 Output: Urine Catheter Amount 950 / 950 1050 / 1050 1125 / 1125 Other: Meal Crackers Lunch Percent of Meal Consumed 100% Feeding Ability Independent Independent Exam: on exam, she is sitting up in a chair, and in no acute distress.she notes she is feeling a bit tired today.she denies significant anxiety or tremulousness or other signs of alcohol withdrawal. Neck is supple without lymphadenopathy or JVD. Cardiac exam shows regular rate and rhythm. Lungs are clear to auscultation. Abdomen soft and nontender. Extremities: Left hip incision shows a very long dressing down to the knee. There is minimal bloody drainage at the proximal end. Otherwise dressing is clean and dry. Extremities otherwise show no significant edema. Medical - PN: Obj Da - Labs CBC & Chem 7: 10/06/16 03:49 10/06/16 03:49 Labs: Abnormal Lab Results 10/06/16 10/06/16 10/05/16 03:49 03:49 05:11 WBC RBC 2.89 L Hgb 9.2 L Hct 27.3 L Gran % 80.6 H Lymph % (Auto) 7.0 L [place] % (Auto) 11.7 H Gran # Lymph # 0.6 L [place] # 1.0 H Anion Gap 18.0 H Creatinine 0.5 L 0.5 L Glucose 129 H 116 H Calcium 7.8 L Total Protein 5.6 L 10/05/16 05:11 WBC 11.9 H RBC Hgb Hct Gran % 83.4 H Lymph % (Auto) 6.6 L [place] % (Auto) 9.1 H Gran # 10.0 H Lymph # 0.8 L [place] # 1.1 H Anion Gap Creatinine Glucose Calcium Total Protein eKG shows normal sinus rhythm at a rate of about 80, with rather low voltage There are minor ST-T changes noted in leads 1 and V2 but no obvious acute ischemia. chest x-ray the shows no acute disease. x-ray of the left hip shows a comminuted displaced left sub-trochanteric femoral fracture. Meds: Medications Acetaminophen (Tylenol) 650 mg PO Q6HP PRN PRN Reason: PAIN/FEVER > 101 Acetaminophen/Hydrocodone Bitart ([place] 10/325mg) 0 tab PO Q4HP PRN PRN Reason: Pain Last Admin: 10/06/16 07:23 Dose: 1 tab Amlodipine Besylate (Norvasc) 5 mg PO QDAY [facility] Last Admin: 10/06/16 09:31 Dose: 5 mg Atorvastatin Calcium (Lipitor) 40 mg PO QDAY [facility] Last Admin: 10/06/16 09:33 Dose: 40 mg Bisacodyl (Dulcolax) 10 mg IA Q2-3DAYS PRN PRN Reason: Constipation Calcium Carbonate/Glycine (Tums) 1,000 mg CHEWED Q4HP PRN PRN Reason: Dyspepsia Calcium/Vitamin D (Calcium W/Vit D3) 500 mg PO DAILY [facility] Last Admin: 10/06/16 09:32 Dose: 500 mg Docusate Sodium (Colace) 100 mg PO BID [facility] Last Admin: 10/06/16 09:32 Dose: 100 mg Hydrochlorothiazide (Oretic) 25 mg PO QDAY [facility] Last Admin: 10/06/16 09:32 Dose: 25 mg Hydromorphone HCl (Dilaudid) 0 mg IV Q2HP PRN PRN Reason: Pain Sodium Chloride (Sodium Chloride 0.9%) 1,000 mls @ 100 mls/hr IV .Q10H [facility] Last Admin: 10/06/16 07:40 Dose: 100 mls/hr Iron Carb/Multivit/[place]/Folic Acid (Multivitamin W/Minerals) 1 tab PO DAILY [facility] Last Admin: 01/29/17 09:31 Dose: 1 tab Lorazepam (Ativan) 1 mg IV Q4-6HP PRN PRN Reason: ANXIETY/SEDATION Losartan Potassium (Cozaar) 100 mg PO DAILY [facility] Last Admin: 10/06/16 09:31 Dose: 100 mg Magnesium Hydroxide (Milk Of Magnesia) 30 ml PO BIDP PRN PRN Reason: Constipation Methocarbamol (Robaxin) 750 mg PO Q6HP PRN PRN Reason: Muscle Spasm Metoprolol Succinate (Toprol Xl) 25 mg PO QDAY [facility] Last Admin: 10/06/16 09:31 Dose: 25 mg Naloxone HCl (Narcan) 0.1 mg IV Q2MIN PRN PRN Reason: Opiate Reversal Ondansetron HCl (Zofran) 4 mg IV Q6HP PRN PRN Reason: Nausea And Vomiting Ondansetron HCl (Zofran Odt) 4 mg SL Q4HP PRN PRN Reason: Nausea And Vomiting Pantoprazole Sodium (Protonix) 40 mg PO QAMAC [facility] Last Admin: 10/06/16 07:23 Dose: 40 mg Polyethylene Glycol (Miralax) 17 gm PO DAILYP PRN PRN Reason: Constipation Potassium Chloride (Kdur) 10 meq PO QAMCC [facility] Last Admin: 10/06/16 07:23 Dose: 10 meq Senna (Senokot) 2 tab PO HS [facility] Last Admin: 10/05/16 19:46 Dose: 2 tab Sodium Chloride (Saline Flush) 10 ml IV Q8 [facility] Last Admin: 10/06/16 05:46 Dose: 10 ml Throat Lozenges (Cepacol) 1 lozenge PO PRN PRN PRN Reason: Sore Throat Warfarin Sodium (Coumadin) 4 mg PO DAILY@1400 [facility] Last Admin: 10/05/16 14:43 Dose: 4 mg Medical - PN: A/P - Time Spent With Patient Total time spent is greater than 50% in coordination of care (as documented) at patient's floor/unit and/or counseling patient: (1) Closed left subtrochanteric femur fracture Status: Acute Current Visit: Yes (2) Hyponatremia Status: Acute Current Visit: Yes (3) Gastroesophageal reflux Status: Chronic Current Visit: No (4) Hypertension, essential Status: Chronic Current Visit: No (5) Osteoporosis Status: Chronic Current Visit: No - Narrative A/P Narrative: #1. Orthopedics. -Left subtrochanteric fracture. patient is status post ORIF. -iV pain meds as needed. -the patient does not appear to have much of a social support network, so may end up needing to go to rehabilitation after surgery. #2. Mild hyponatremia -improved. -she seems to be taking in food and liquids adequately, so IV fluids can be discontinued. #3. cardiac. -History of hypertension Continue usual medications including beta león, losartan, Norvasc, HCTZ,during the perioperative period. blood pressure is reasonably well controlled. -This should also improve once IV fluids are discontinued. #4. CODE STATUS:full code for now. The patient seems a little confused about the meaning of a no code order, and apparently does not have anything in writing. Her wqurveg-eq-[id number] in [place] is her power of deputy commonwealth's attorney. #5. DVT prophylaxis: Dr. Morillo has started her on low-dose Coumadin. #6. History of osteoporosis. -Continue Fosamax plus calcium and vitamin D. (we will need to hold the Fosamax , until she is able to sit upright for at least 30 minutes after her dose.) #7. Recent diagnosis of lower extremity melanoma. Status post wide excision. -here is a suspicious lesion near the excision scar. She is encouraged to follow-up with her skin doctor to have this looked at again. it is reported that one of 4 lymph nodes was positive. It is not clear what the plan for further care is. #8. Hyperlipidemia.continue Lipitor. #9. GERD.-Continue PPI. #10. Chronic alcohol use. she reports drinking 2-3 glasses of wine per day. We may need to watch for signs of alcohol withdrawal, if she ends up staying in the hospital more than another day or so.I did add when necessary lorazepam. #11. She has a very low-grade temperature this afternoon. I don't see any other signs of infection. #12. Hematologic. -Patient is fairly anemic postop. I explained to her that this may take a while to get back to baseline. We will recheck in the morning. his visit took approximately 25 minutes today, to review test results, interview and examine her explain the plan of careI write orders. Medical - PN: Qual - Stroke Symptom Onset Unknown: No - VTE Deep Vein Thrombosis/Pulmonary Embolism Present on Admission: No
[2016-10-06] MEDS: WARFARIN 4 MG TABLET PO SCH (13:32)
--- NOTE | 2016-10-06 15:06 | Discharge Summary ---
Ortho Discharge Plan - General - Patient Instructions Diet: Regular Diet Activity: ambulate with assistive device, weight bearing as tolerated Dressing Care: May shower in 2 days, Nikolayel Ag - leave on for 5 days - Follow Up Plan Follow Up Appointments: Maksim Ibarra MD [Primary Care Provider] - Disposition: [facility] Prognosis: Good Rehab Potential: Good I certify that the patient requires SNF services: No Overall status at discharge: patient is progressing back to baseline
[2016-10-06] MEDS: SENNOSIDES 1 TABLET PO SCH (20:48)
[2016-10-07] MEDS: 0.9 % SODIUM CHLORIDE 10 ML SYRINGE IV SCH ×2 (05:59→14:28)
[2016-10-07] MEDS: HYDROcodone/APAP 10/325MG TABLET PO PRN ×2 (06:43→10:56)
[2016-10-07] MEDS: PANTOPRAZOLE 40 MG TABLET PO SCH (06:43)
[2016-10-07 07:21] LABS: Basophils # (Auto) 0 K/mcL (0.0-0.3); Basophils % (Auto) 0.4 % (0.0-2.0); Eosinophils # (Auto) 0.1 K/mcL (0.0-0.7); Eosinophils % (Auto) 0.7 % (0.0-7.0); Granulocytes % (Auto) 68.6 % (38.0-78.0); Lymphocytes # (Auto) 1.4 K/mcL (1.5-4.8); Lymphocytes % (Auto) 17.2 % (15.5-49.0); Mean Cell Volume 94.6 fL (80.0-100.0); Mean Corpuscular HGB Conc 33.5 g/dL (31.0-36.0); Mean Corpuscular Hemoglobin 31.7 pg (26.0-34.0); Monocytes # (Auto) 1.1 K/mcL (0.1-0.9); Monocytes % (Auto) 13.1 % (1.0-9.0); Platelet Count 189 K/mcL (140-440); RBC 2.97 M/mcL (4.00-5.20); Red Cell Distribution Width 13.6 % (11.5-14.5)
[2016-10-07 08:07] LABS: ALT/SGPT 18 U/l (0-40); Albumin 3.7 gm/dL (3.2-5.2); Albumin/Globulin Ratio 1.9 (1.0-2.3); Alkaline Phosphatase 47 U/L (39-117); Bilirubin,Direct < 0.2 mg/dL (0.0-0.3); Blood Urea Nitrogen 10 mg/dl (8-23); Gamma Glutamyl Transpeptidase 14 U/L (5-36); Magnesium 1.9 mg/dL (1.6-2.5); Phosphorous 2.1 mg/dL (2.7-4.5); Uric Acid 2.6 mg/dL (2.5-8.0)
--- NOTE | 2016-10-07 08:46 | Operative Note ---
DATE OF OPERATION: 10/05/2016 PREOPERATIVE DIAGNOSIS: Subtrochanteric comminuted displaced fracture, left hip. POSTOPERATIVE DIGNOSIS: Subtrochanteric comminuted displaced fracture, left hip. PROCEDURE: Left hip cephalomedullary nailing with a long Gamma nail. SURGEON: Lev Morillo M.D. TONE CABINET ASSEMBLER SURGEON: Reji Mccarthy PA-C. ANESTHESIA: Spinal with LMA assist. ESTIMATED BLOOD LOSS: 200 mL. COMPLICATIONS: None noted. SPECIMENS REMOVED: None. DRAINS: None. IMPLANTS: [place] Gamma3 system 10 x 360 x 125, Carlos Alberto Gamma titanium lag screw 10.5 x 85 mm, Carlos Alberto Gamma nail 5 x 37.5. INDICATIONS: The patient fell and was unable to ambulate. Radiographs have confirmed a displaced intertrochanteric fracture of the proximal femur. The patient was admitted to the hospital and underwent medical clearance. After a long discussion about treatment options, the patient elected to proceed with cephalomedullary nailing. The risks and benefits were discussed with the patient in detail including, but not limited to, the risks of anesthesia, problems with the heart or lungs related to anesthesia, infection, compromise or injury to the nerves and blood vessels, deep venous thrombosis, pulmonary embolism, pneumonia, continued pain after surgery, worsening pain or symptoms after surgery, swelling, loss of motion, malunion, non-union, leg length discrepancy, and need for repeat surgery. DESCRIPTION OF PROCEDURE: The patient was seen in pre-anesthesia waiting room where all questions were answered and the correct side and site were identified and marked. The patient was then brought to the operating room and administered the anesthetic and given preoperative antibiotics. A time-out was then called. The patient was placed on the fracture table with all prominences well padded. The leg was brought into traction, adduction, and slight internal rotation. We used C-arm with orthogonal views to confirm anatomic reduction of the fracture. The extremity was prepped and draped in the usual sterile fashion. C-arm was again used to confirm landmarks and the fracture site. A 4 cm incision was created laterally over the fracture site at the subtrochanteric region. I dissected down through the skin, subcutaneous tissue, and we split the iliotibial band in line with the incision. We elevated off some of the vastus lateralis and came down at the fracture site. It was comminuted and in about four pieces. We used clamps to anatomically reduce the fracture. A percutaneous incision was created about 4 centimeters proximal to the greater trochanter. A guide pin was placed into the femoral canal under fluoroscopy after we found the appropriate starting position along the medial boarder of the trochanter and just anterior to the center position laterally. We placed a protector sleeve proximally and over-reamed with the 17 mm proximal reamer. Next, we changed out the guide pin for a ball-tipped guide sol and placed it into the femoral canal. We sequentially reamed starting at the size 8, and then we reamed up to a 12 mm reamer. We measured the length of the long nail at 360 mm length. Position was confirmed with the C-arm. The 360 mm Carlos Alberto Gamma nail was then placed with appropriate depth and version using the percutaneous targeting guide. The lateral lag screw sleeve was placed in the targeting guide and a second small percutaneous incision was made to allow the sleeve access to the lateral cortex of the femur. We drilled the guide pin into the center - center position of the femoral head confirmed with fluoroscopy. We measured and drilled over the guide pin. The lag screw was then inserted and we compressed the fracture then placed the proximal screw. We released the traction and then got a perfect [place] distally. I used the dynamic hole and used perfect [place] technique to place a percutaneous 5.0 mm screw distally. It was drilled, measured, and placed using C-arm guidance. Final radiographs were taken confirming reduction of the fracture and adequate placement of all hardware. We thoroughly irrigated the three percutaneous incisions and closed the deep fascia with #0 Vicryl. We closed the subcutaneous tissue and skin in layers out to samuel in the skin. A sterile pressure dressing was applied. All needle and sponge counts were correct. The patient was transferred to the recovery room in stable condition. Martir Job ID: [id number] Doc ID: [id number] Lev Morillo MD
[2016-10-07] MEDS: CALCIUM W/VIT D3 500 MG TABLET PO SCH (08:56)
[2016-10-07] MEDS: METOPROLOL SUCCINATE 25 MG TAB.XL.24H PO SCH (08:56)
[2016-10-07] MEDS: LOSARTAN 50 MG TABLET PO SCH (08:56)
[2016-10-07] MEDS: MULTIVIT,THER IRON,CA,FA & MIN 1 TABLET PO SCH (08:56)
[2016-10-07] MEDS: HYDROCHLOROTHIAZIDE 25 MG TABLET PO SCH (08:57)
[2016-10-07] MEDS: ATORVASTATIN 40 MG TABLET PO SCH (08:57)
[2016-10-07] MEDS: DOCUSATE SODIUM 100 MG CAPSULE PO SCH (08:57)
[2016-10-07] MEDS: amLODIPine 5 MG TABLET PO SCH (08:57)
[2016-10-07] MEDS: POTASSIUM CHLORIDE 10 MEQ TABLET PO SCH (09:53)
--- NOTE | 2016-10-07 12:10 | Discharge Summary ---
Medical - DS: Prov Patient information: Note initiated : 10/07/16 at 11:51 am Service Date, if different from initiated Date: [] Patient: Amor Joshua 76 y/o F admitted on 10/04/16 for Fall/Left Femur Fracture. Chief Complaint: [] Date of admission: 10/04/16 22:59 Discharge date: 10/07/16 Primary care physician: [dr. Maksim Vernon, [id number]] Admitting clinician: Laura Neely Consults: dr. Morillo, orthopedics. Attending physician on discharge: Laura Neely Medical - DS: Meds - Discharge Medications Prescriptions: HYDROcodone/APAP 10/325MG [[place] 10/325Mg] 1 - 2 tab PO Q4H PRN #60 tablet PRN Reason: Pain Neutra Phos 1 packet PO BID #1 packet Active and Home Medications: Home Medications HYDROcodone/APAP 10/325MG [[place] 10/325Mg] 1 - 2 tab PO Q4H PRN #60 tablet 10/06 [Rx Last Taken Unknown] Active Medications Acetaminophen (Tylenol) 650 mg PO Q6HP PRN PRN Reason: PAIN/FEVER > 101 Acetaminophen/Hydrocodone Bitart ([place] 10/325mg) 0 tab PO Q4HP PRN PRN Reason: Pain Last Admin: 10/07/16 10:56 Dose: 1 tab Amlodipine Besylate (Norvasc) 5 mg PO QDAY [facility] Last Admin: 10/07/16 08:57 Dose: 5 mg Atorvastatin Calcium (Lipitor) 40 mg PO QDAY [facility] Last Admin: 10/07/16 08:57 Dose: 40 mg Bisacodyl (Dulcolax) 10 mg CO Q2-3DAYS PRN PRN Reason: Constipation Calcium Carbonate/Glycine (Tums) 1,000 mg CHEWED Q4HP PRN PRN Reason: Dyspepsia Calcium/Vitamin D (Calcium W/Vit D3) 500 mg PO DAILY [facility] Last Admin: 10/07/16 08:56 Dose: 500 mg Docusate Sodium (Colace) 100 mg PO BID [facility] Last Admin: 10/07/16 08:57 Dose: 100 mg Hydrochlorothiazide ([place]) 25 mg PO QDAY [facility] Last Admin: 10/07/16 08:57 Dose: 25 mg Hydromorphone HCl (Dilaudid) 0 mg IV Q2HP PRN PRN Reason: Pain Iron Carb/Multivit/[place]/Folic Acid (Multivitamin W/Minerals) 1 tab PO DAILY [facility] Last Admin: 10/07/16 08:56 Dose: 1 tab Lorazepam (Ativan) 1 mg IV Q4-6HP PRN PRN Reason: ANXIETY/SEDATION Losartan Potassium (Cozaar) 100 mg PO DAILY [facility] Last Admin: 10/07/16 08:56 Dose: 100 mg Magnesium Hydroxide (Milk Of Magnesia) 30 ml PO BIDP PRN PRN Reason: Constipation Methocarbamol (Robaxin) 750 mg PO Q6HP PRN PRN Reason: Muscle Spasm Metoprolol Succinate (Toprol Xl) 25 mg PO QDAY [facility] Last Admin: 10/07/16 08:56 Dose: 25 mg Naloxone HCl (Narcan) 0.1 mg IV Q2MIN PRN PRN Reason: Opiate Reversal Ondansetron HCl (Zofran) 4 mg IV Q6HP PRN PRN Reason: Nausea And Vomiting Ondansetron HCl (Zofran Odt) 4 mg SL Q4HP PRN PRN Reason: Nausea And Vomiting Pantoprazole Sodium (Protonix) 40 mg PO QAMAC [facility] Last Admin: 10/07/16 06:43 Dose: 40 mg Polyethylene Glycol (Miralax) 17 gm PO DAILYP PRN PRN Reason: Constipation Potassium Chloride (Kdur) 10 meq PO QAMCC [facility] Last Admin: 10/07/16 09:53 Dose: 10 meq Senna (Senokot) 2 tab PO HS [facility] Last Admin: 10/06/16 20:48 Dose: 2 tab Sodium Chloride (Saline Flush) 10 ml IV Q8 [facility] Last Admin: 10/07/16 05:59 Dose: 10 ml Throat Lozenges (Cepacol) 1 lozenge PO PRN PRN PRN Reason: Sore Throat Warfarin Sodium (Coumadin) 5 mg PO DAILY@1400 [facility] Medical - DS: Hosp Hospital course: Mrs. Joshua is a 76 year old female October 04, 2016: History of present illness: Ms. Joshua is a 76 year old female who tripped and fell this evening while she was walking outside in the dark. She landed on her hip, and had immediate hip pain. She was then transported to the emergency room, where a left subtrochanteric femoral fracturewas diagnosed. She is now admitted to stabilize overnight,and will see orthopedics in the morning. She has a history of hypertension, GERD, hyperlipidemia osteoporosis, and recent melanoma. otherwise, she denies recent fever or chills, headaches or dizziness, new eye or ear symptoms, sore throat. She does have a mild cough, which is nonproductive. She denies chest pain or palpitations, shortness of breath or wheezing, abdominal pain, nausea or vomiting, diarrhea or constipation or bright red blood per rectum, or dysuria. october 05: this morning, the patient is status post pinning of her hip. she is wrapped essentially had to toe and blankets. She is quite groggy. she denies significant pain, chest pain or shortness of breath, abdominal pain, nausea or vomiting. October 06:today, the patient says she is feeling quite well. She is sitting up in a chair. She has only minimal pain unless she tries to stand up. Otherwise, she denies fever or chills, chest pain or shortness of breath, abdominal pain, nausea or vomiting or diarrhea, dysuria. Negron catheter is still in place. her surgery went well yesterday. She has no social support network, so we'll need to discharge to a rehabilitation center for her rehabilitation. October 07: Today, the patient says she is feeling well. She notes she has had some pain and the nurses have told her she should be taking her pain medicine more regularly, so that she does not hurt so much with physical therapy. She says she did have pain medications before PT today, and that helped quite a bit. Otherwise, today she denies fever or chills, chest pain or shortness of breath, abdominal pain, nausea or vomiting, diarrhea or constipation, dysuria. on exam, she is lying in bed, and in no acute distress. Neck is supple without lymphadenopathy or JVD. Cardiac exam shows regular rate and rhythm. Lungs are clear to auscultation. Abdomen soft and nontender. Extremities: Left hip incision shows a very long dressing down to the knee. There is minimal bloody drainage at the proximal end. Otherwise dressing is clean and dry. Extremities otherwise show no significant edema. Neurologic exam is grossly nonfocal. assessment and plan: #1. Orthopedics. -Left subtrochanteric fracture. patient is status post ORIF. -iV pain meds as needed. -the patient does not appear to have much of a social support network, so we'll go to rehabilitation for physical therapy and occupational therapy and fall prevention. Wound care can be done there as well. -I would imagine she will need follow-up with Dr. Morillo in about 2 weeks, but this should be clarified with his office. #2. Mild hyponatremia -improved. #3. cardiac. -History of hypertension Continue usual medications including beta león, losartan, Norvasc, HCTZ,during the perioperative period. blood pressure is reasonably well controlled. -lease monitor one to 2 times each day. #4. CODE STATUS:full code for now. The patient seems a little confused about the meaning of a no code order, and apparently does not have anything in writing. Her [id number] in [place] is her power of cardiopulmonary physical therapist. #5. DVT prophylaxis: Dr. Morillo has started her on low-dose Coumadin. -please check INR daily, and forward results either to Dr. Morillo or to her PCP. #6. History of osteoporosis. -Continue Fosamax plus calcium and vitamin D. #7. Recent diagnosis of lower extremity melanoma. Status post wide excision. -here is a suspicious lesion near the excision scar. She is encouraged to follow-up with her skin doctor to have this looked at again. it is reported that one of 4 lymph nodes was positive. It is not clear what the plan for further care is. #8. Hyperlipidemia.continue Lipitor. #9. GERD.-Continue PPI. #10. Chronic alcohol use. she reports drinking 2-3 glasses of wine per day. We may need to watch for signs of alcohol withdrawal, if she ends up staying in the hospital more than another day or so.I did add when necessary lorazepam. #11. She has a very low-grade temperature yesterday. I don't see any other signs of infection. #12. Hematologic. -Patient is fairly anemic postop. I explained to her that this may take a while to get back to baseline. -this should be rechecked in a week or so. #13. Her phosphorus levels are a little bit low as well I would replace this orally for a few days per Ortho : Diet: Regular Diet Activity: ambulate with assistive device, weight bearing as tolerated Dressing Care: May shower in 2 days, Aquacel Ag - leave on for 5 days Discharge diagnosis: left hip subcutaneous trochanteric fracture. Hyponatremia. Hypertension. Secondary discharge diagnosis: skin lesion suspicious for recurrent melanoma. History of chronic alcohol use. - Time Spent with Patient Total time spent providing and/or coordinating discharge services: Greater than 30 minutes Medical - DS: Exam - Constitutional Vitals: Vital Signs Temp Pulse Resp BP Pulse Ox 10/07/16 08:51 93 10/07/16 08:00 98.1 F 87 18 166/62 95 10/07/16 03:49 98.4 F 85 18 163/72 93 10/06/16 23:25 99.1 F 82 18 142/67 95 10/06/16 20:00 98.2 F 82 18 151/75 95 10/06/16 15:14 99.3 F 86 16 163/75 96 Intake and Output 10/06/16 10/07/16 10/07/16 21:59 05:59 13:59 Intake Total 1220 / 1220 475 / 475 240 / 240 Output Total 950 / 950 350 / 350 200 / 200 Balance 270 / 270 125 / 125 40 / 40 Intake: Oral 1220 / 1220 475 / 475 240 / 240 Output: Urine Catheter Amount 650 / 650 Void Amount 300 / 300 350 / 350 200 / 200 Other: Meal Dinner Percent of Meal Consumed 100% Feeding Ability Independent # Voids 1 # Bowel Movements 1 Weight 145 lb 8 oz Medical - DS: Data Labs on day of discharge: Labs from last 24 hours 10/07/16 10/07/16 10/07/16 05:40 05:40 05:40 WBC 8.2 RBC 2.97 L Hgb 9.4 L Hct 28.1 L MCV 94.6 MCH 31.7 MCHC 33.5 RDW 13.6 Plt Count 189 MPV 9.7 Gran % 68.6 Lymph % (Auto) 17.2 [place] % (Auto) 13.1 H Eos % (Auto) 0.7 Baso % (Auto) 0.4 Gran # 5.7 Lymph # 1.4 L [place] # 1.1 H Eos # 0.1 Baso # 0 PT 15.5 H INR 1.2 H Sodium 138 Potassium 4.0 Chloride 100 Carbon Dioxide 24 Anion Gap 14.0 BUN 10 Creatinine 0.5 L GFR Calculation 95 Glucose 90 Uric Acid 2.6 Calcium 8.6 Phosphorus 2.1 L Magnesium 1.9 Total Bilirubin 0.4 Direct Bilirubin < 0.2 GGT 14 AST 37 ALT 18 Alkaline Phosphatase 47 Lactate Dehydrogenase 150 Total Protein 5.7 L Albumin 3.7 Globulin 2.0 L Albumin/Globulin Ratio 1.9 Triglycerides 96 blood pressures are a bit elevated today, ranging from 142-166/62-72 eKG shows normal sinus rhythm at a rate of about 80, with rather low voltage There are minor ST-T changes noted in leads 1 and V2 but no obvious acute ischemia. chest x-ray the shows no acute disease. x-ray of the left hip shows a comminuted displaced left sub-trochanteric femoral fracture. Medical - DS: A/P - Patient/Caregiver Discharge Instructions Activity: as per physical therapy Diet: Cardiac Additional Instructions: 31. Please call Dr. Morillo's office to see when you are due for follow-up. I would expect this to be in about 2 weeks. #2. Please check INR daily for the next several days, and for results either to Dr. Morillo or to PCP. #3. PT and OT services. Prescriptions: HYDROcodone/APAP 10/325MG [[place] 10/325Mg] 1 - 2 tab PO Q4H PRN #60 tablet PRN Reason: Pain Neutra Phos 1 packet PO BID #1 packet Other Amb Orders: OT Discharge Order Location: Determined By Patient Physical Therapy at Discharge - [place] Location: Determined By Patient Physical Therapy at Discharge - General Location: Determined By Patient Toilet Riser Discharge Order Location: Determined By Patient Walker Location: Determined By Patient - Problem Maintenance (1) Closed left subtrochanteric femur fracture Status: Acute Qualifiers: Encounter type: subsequent encounter Fracture healing: with routine healing Qualified Code(s): S72.22XD - Displaced subtrochanteric fracture of left femur, subsequent encounter for closed fracture with routine healing (2) Hyponatremia Status: Resolved (3) Gastroesophageal reflux Status: Chronic Qualifiers: Esophagitis presence: esophagitis presence not specified Qualified Code(s) : K21.9 - Gastro-esophageal reflux disease without esophagitis (4) Hypertension, essential Status: Chronic (5) Osteoporosis Status: Chronic - Follow up Plan Follow up with: Maksim Ibarra MD [Primary Care Provider] - Sami Morillo MD [Physician] - (Call today to set up a surgery follow up in 2 weeks.) Disposition: Xfer SNF Prognosis: Good Rehab Potential: Good I certify that the patient requires SNF services: Yes Overall status at discharge: patient is not back to baseline Medical - DS: Qual - VTE Deep Vein Thrombosis/Pulmonary Embolism Present on Admission: No
[2016-10-07] MEDS ORDERED: WARFARIN 5 MG TABLET PO SCH (14:00)
== END 2016-10-07 14:15 | DRG 481 ==
LOC: ED 19:15 → MEDSUR 22:59
PROVIDERS: ADMIT Internal Medicine; ATTEND Internal Medicine